=== PATIENT | female | born 1950 | race Caucasian/White ===

== ENCOUNTER 2018-05-31 16:17 | Emergency (ER) | payer OTHER ==
[2018-05-31] MEDS ORDERED: HYDROCODONE/APAP 7.5/325 MG TAB ONE (17:56)
--- NOTE | 2018-05-31 18:53 | RAD REPORT ---
EXAM DESCRIPTION: RAD - Humerus Right - 05/31/2018 6:45 pm CLINICAL HISTORY: Right arm pain status post fall FINDINGS: The bones are osteoporotic. A humeral fracture is not noted
--- NOTE | 2018-05-31 18:54 | RAD REPORT ---
EXAM DESCRIPTION: RAD - Elbow Right 3 View - 05/31/2018 6:45 pm CLINICAL HISTORY: Right elbow pain FINDINGS: An impacted radial neck fracture is seen. No dislocation is noted
--- NOTE | 2018-05-31 18:54 | RAD REPORT ---
EXAM DESCRIPTION: RAD - Forearm Right - 05/31/2018 6:45 pm CLINICAL HISTORY: Right arm pain status post fall FINDINGS: An impaction fracture of the radial neck is present. The bones are osteoporotic. Plate and screws affix an old distal radial fracture.
--- NOTE | 2018-05-31 18:56 | RAD REPORT ---
EXAM DESCRIPTION: RAD - Wrist Left 3 View - 05/31/2018 6:45 pm CLINICAL HISTORY: Left wrist pain status post injury FINDINGS: No fracture or dislocation is seen. The bones are osteoporotic If the patient continues to have symptoms to suggest an occult fracture then a followup plain film se brandon in 7 days would be recommended
--- NOTE | 2018-05-31 19:11 | ER ---
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 Transition of care: patient was not received from another setting of care. Onset of symptoms was May 31, 2018. Risk Assessment: Do you want to hurt yourself or someone else? Patient reports no desire to harm self or others. Initial Sepsis Screen: Does the patient meet any 2 criteria? No. Patient's initial sepsis screen is negative. Does the patient have a suspected source of infection? No. Patient's initial sepsis screen is negative. Care prior to arrival: None. 16:33 Method Of Arrival: Ambulatory 16:33 Acuity: MAURICIO 4 16:41 Mechanism of Injury: Fall. Trauma event details: Injury occurred in the county [facility], Injury occurred: in a public building. Injury occurred: May 31, 2018. Triage Assessment: 16:42 General: Appears in no apparent distress. uncomfortable, Behavior is calm, cooperative, appropriate for age. Trauma Activation: Not Applicable Physician: ED Physician; Name: ; Notified At: ; Arrived At: Physician: General Surgeon; Name: ; Notified At: ; Arrived At: Physician: Radiology; Name: ; Notified At: ; Arrived At: Physician: Respiratory; Name: ; Notified At: ; Arrived At: Physician: Lab; Name: ; Notified At: ; Arrived At: Historical: - Allergies: 16:38 No Known Drug Allergies; hj - Home Meds: 16:38 Lyrica Oral [Active]; hydrocodone-acetaminophen Oral 1 cap every 4-6 hours [Active]; - PMHx: 16:38 Diabetes - NIDDM; neuropathy; - PSHx: 16:38 Cholecystectomy; Appendectomy; hj - Immunization history:: Adult Immunizations up to date. - Social history:: Smoking status: Patient/guardian denies using tobacco, Patient/guardian denies using alcohol. - Ebola Screening: : Patient negative for fever greater than or equal to 101.5 degrees Fahrenheit, and additional compatible Ebola Virus Disease symptoms Patient denies exposure to infectious person Patient denies travel to an Ebola-affected area in the 21 days before illness onset. - Family history:: not pertinent. Screenin:13 Abuse screen: Denies threats or abuse. Nutritional screening: No deficits noted. tl3 Tuberculosis screening: No symptoms or risk factors identified. 17:13 Fall Risk Fall in past 12 months (25 points). tl3 Primary Survey: 16:40 A: Airway: patent, No supplemental oxygen in use on arrival. Oral cavity: clear, gag hj reflex present, Trachea midline. Breathing/Chest: Respiratory pattern: regular, Respiratory effort: spontaneous, unlabored, Breath sounds: clear, Chest inspection: symmetrical rise and fall of the chest. Circulation: Cardiac rhythm: sinus rhythm Heart tones present. Pulses: palpable right radial artery and left radial artery. Skin color: pink, Skin temperature: warm, dry. Disability Alert. Secondary Survey: 16:41 HEENT: No deficits noted. Gastrointestinal: No deficits noted. : No signs and/or hj symptoms were reported regarding the genitourinary system. Musculoskeletal: Reports pain in R elbow, L wrist, R knee, L knee. Assessment: 17:06 General: Appears uncomfortable, slender, well groomed, well developed, well nourished, tl3 Behavior is calm, cooperative, appropriate for age, anxious. Pain:. 17:12 Neuro: Level of Consciousness is awake, alert, obeys commands, Oriented to person, tl3 place, time, situation, Appropriate for age. Cardiovascular: Patient's skin is warm and dry. Respiratory: Airway is patent Respiratory effort is even, unlabored, Respiratory pattern is regular, symmetrical. GI: No signs and/or symptoms were reported involving the gastrointestinal system. : No signs and/or symptoms were reported regarding the genitourinary system. EENT: No signs and/or symptoms were reported regarding the EENT system. Derm: No signs and/or symptoms reported regarding the dermatologic system. Musculoskeletal: Reports pain in right elbow. 17:13 Musculoskeletal: Reports since fell today at [employer] on frayed cord cover that tl3 crosses the floor, has pain to right elbow and shoulder and the underside of her left wrist small abrasion to left side of face where it hit the carpet. 18:13 Reassessment: No changes from previously documented assessment. Patient and/or family tl3 updated on plan of care and expected duration. Pain level reassessed. Patient is alert, oriented x 3, equal unlabored respirations, skin warm/dry/pink. xray at bedside, pt not tolerating procedure well. 19:08 Reassessment: No changes from previously documented assessment. Patient and/or family tl3 updated on plan of care and expected duration. Pain level reassessed. Patient is alert, oriented x 3, equal unlabored respirations, skin warm/dry/pink. Vital Signs: 16:39 BP 144 / 99; Pulse 89; Resp 18; Temp 98.4(TE); Pulse Ox 97% on R/A; Weight 66.68 kg; hj Height 5 ft. 8 in. (172.72 cm); Pain 10/10; 17:13 BP 130 / 78; Pulse 81; Resp 18; Pulse Ox 99% on R/A; tl3 18:13 BP 153 / 79; Pulse 82; Resp 18; Pulse Ox 100% ; tl3 19:08 BP 141 / 88; Pulse 76; Resp 18; Pulse Ox 99% on R/A; tl3 16:39 Body Mass Index 22.35 (66.68 kg, 172.72 cm) [place] Coma Score: 16:39 Eye Response: spontaneous(4). Verbal Response: oriented(5). Motor Response: obeys commands(6). Total: 15. Trauma Score (Adult): 16:39 Eye Response: spontaneous(1); Verbal Response: oriented(1); Motor Response: obeys commands(2); Systolic BP: > 89 mm Hg(4); Respiratory Rate: 10 to 29 per min(4); Jennifer Score: 15; Trauma Score: 12 ED Course: 16:21 Patient arrived in ED. mr 16:21 out of town, doctor is Private Physician. mr 16:35 Triage completed. hj 16:41 Arm band placed on left wrist. hj 16:49 Jose Contreras MD is Attending Physician. [facility] 16:57 Yenifer Sosa, RN is Primary Nurse. tl3 17:13 Patient has correct armband on for positive identification. Bed in low position. Call tl3 light in reach. Side rails up X2. Adult w/ patient. Pulse ox on. NIBP on. 17:13 No provider procedures requiring assistance completed. tl3 18:45 Elbow Right 3 View XRAY In Process Unspecified. EDMS 18:45 Forearm Right XRAY In Process Unspecified. EDMS 18:45 Humerus Right XRAY In Process Unspecified. EDMS 18:45 Wrist Left (3 View) XRAY In Process Unspecified. EDMS 19:00 Patient did not have IV access during this emergency room visit. Orthoglass splint: tl3 posterior long arm splint applied to the right arm. Sling applied to right arm. 19:09 Rubin Lowery MD is Referral Physician. fabby Administered Medications: 17:52 Drug: [place] (7.5 mg-325 mg) 1 tabs Route: PO; tl3 18:14 Follow up: Response: No adverse reaction; Pain is decreased tl3 18:09 Drug: Neosporin Ointment 1 application Route: Topical; Site: affected area; tl3 18:14 Follow up: Response: No adverse reaction tl3 Outcome: 19:00 Discharged to home ambulatory. tl3 19:00 Condition: good 19:00 Discharge instructions given to patient, family, Instructed on discharge instructions, follow up and referral plans. medication usage, Demonstrated understanding of instructions, follow-up care, medications, splint care, Prescriptions given X 1. 19:10 Discharge ordered by . [facility] 20:01 Patient left the ED. ms Signatures: Dispatcher [employer] EDMS Jose Contreras MD MD cha Rivera, Mary mr Sebastian Noemí ms Ngoc Gibbons, ALBERTO DOMINGUEZ Rios Callejas RN RN hj Lowrey, Tammy, RN RN tl3 Corrections: (The following items were deleted from the chart) 16:42 16:39 Pulse 89bpm; Resp 18bpm; Pulse Ox 97% RA; Temp 98.4F Temporal; 66.68 kg; Height 5 hj ft. 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 tl3 tl3
--- NOTE | 2018-05-31 19:11 | EDPHYS ---
Physician Documentation [facility] Name: Collette Brooks Age: 68 yrs Sex: Female : 1950 Arrival Date: 05/31/2018 Time: 16:21 Bed 24 Private MD: out of town, doctor ED Physician Jose Contreras HPI: 05/31 17:46 This 68 yrs old Female presents to ER via Ambulatory with complaints of Fall fabby Injury. 17:46 Details of fall: The patient fell from an upright position, while walking. Onset: The fabby symptoms/episode began/occurred just prior to arrival. Associated injuries: The patient sustained right arm, contusion, decreased range of motion, painful injury. Severity of symptoms: At their worst the symptoms were mild, moderate, in the emergency department the symptoms are unchanged. The patient has not experienced similar symptoms in the past. Historical: - Allergies: 16:38 No Known Drug Allergies; - Home Meds: 16:38 Lyrica Oral [Active]; hydrocodone-acetaminophen Oral 1 cap every 4-6 hours [Active]; hj - PMHx: 16:38 Diabetes - NIDDM; neuropathy; hj - PSHx: 16:38 Cholecystectomy; Appendectomy; hj - Immunization history:: Adult Immunizations up to date. - Social history:: Smoking status: Patient/guardian denies using tobacco, Patient/guardian denies using alcohol. - Ebola Screening: : Patient negative for fever greater than or equal to 101.5 degrees Fahrenheit, and additional compatible Ebola Virus Disease symptoms Patient denies exposure to infectious person Patient denies travel to an Ebola-affected area in the 21 days before illness onset. - Family history:: not pertinent. ROS: 17:46 Constitutional: Negative for fever, chills, and weight loss, Eyes: Negative for injury, fabby pain, redness, and discharge, ENT: Negative for injury, pain, and discharge, Neck: Negative for injury, pain, and swelling, Cardiovascular: Negative for chest pain, palpitations, and edema, Respiratory: Negative for shortness of breath, cough, wheezing, and pleuritic chest pain, Abdomen/GI: Negative for abdominal pain, nausea, vomiting, diarrhea, and constipation, Back: Negative for injury and pain, : Negative for injury, bleeding, discharge, and swelling, Skin: Negative for injury, rash, and discoloration, Neuro: Negative for headache, weakness, numbness, tingling, and seizure, Psych: Negative for depression, anxiety, suicide ideation, homicidal ideation, and hallucinations, Allergy/Immunology: Negative for hives, rash, and allergies, Endocrine: Negative for neck swelling, polydipsia, polyuria, polyphagia, and marked weight changes, Hematologic/Lymphatic: Negative for swollen nodes, abnormal bleeding, and unusual bruising. 17:46 MS/extremity: Positive for injury or acute deformity, contusion, decreased range of motion, pain, tenderness, of the right tricep, right elbow, right wrist and palmar aspect of right forearm, left wrist as well. Exam: 17:46 Constitutional: This is a well developed, well nourished patient who is awake, alert, fabby and in no acute distress. Head/Face: Normocephalic, atraumatic. Eyes: Pupils equal round and reactive to light, extra-ocular motions intact. Lids and lashes normal. Conjunctiva and sclera are non-icteric and not injected. Cornea within normal limits. Periorbital areas with no swelling, redness, or edema. ENT: Nares patent. No nasal discharge, no septal abnormalities noted. Tympanic membranes are normal and external auditory canals are clear. Oropharynx with no redness, swelling, or masses, exudates, or evidence of obstruction, uvula midline. Mucous membranes moist. Neck: Trachea midline, no thyromegaly or masses palpated, and no cervical lymphadenopathy. Supple, full range of motion without nuchal rigidity, or vertebral point tenderness. No Meningismus. Chest/axilla: Normal chest wall appearance and motion. Nontender with no deformity. No lesions are appreciated. Cardiovascular: Regular rate and rhythm with a normal S1 and S2. No gallops, murmurs, or rubs. Normal PMI, no JVD. No pulse deficits. Respiratory: Lungs have equal breath sounds bilaterally, clear to auscultation and percussion. No rales, rhonchi or wheezes noted. No increased work of breathing, no retractions or nasal flaring. Abdomen/GI: Soft, non-tender, with normal bowel sounds. No distension or tympany. No guarding or rebound. No evidence of tenderness throughout. Back: No spinal tenderness. No costovertebral tenderness. Full range of motion. Skin: Warm, dry with normal turgor. Normal color with no rashes, no lesions, and no evidence of cellulitis. Neuro: Awake and alert, GCS 15, oriented to person, place, time, and situation. Cranial nerves II-XII grossly intact. Motor strength 5/5 in all extremities. Sensory grossly intact. Cerebellar exam normal. Normal gait. Psych: Awake, alert, with orientation to person, place and time. Behavior, mood, and affect are within normal limits. 17:46 Musculoskeletal/extremity: Extremities: noted in the right arm: decreased ROM, pain, noted in the left wrist: pain. Vital Signs: 16:39 BP 144 / 99; Pulse 89; Resp 18; Temp 98.4(TE); Pulse Ox 97% on R/A; Weight 66.68 kg; hj Height 5 ft. 8 in. (172.72 cm); Pain 10/10; 17:13 BP 130 / 78; Pulse 81; Resp 18; Pulse Ox 99% on R/A; tl3 18:13 BP 153 / 79; Pulse 82; Resp 18; Pulse Ox 100% ; tl3 19:08 BP 141 / 88; Pulse 76; Resp 18; Pulse Ox 99% on R/A; tl3 16:39 Body Mass Index 22.35 (66.68 kg, 172.72 cm) hj [place] Coma Score: 16:39 Eye Response: spontaneous(4). Verbal Response: oriented(5). Motor Response: obeys hj commands(6). Total: 15. Trauma Score (Adult): 16:39 Eye Response: spontaneous(1); Verbal Response: oriented(1); Motor Response: obeys commands(2); Systolic BP: > 89 mm Hg(4); Respiratory Rate: 10 to 29 per min(4); Jennifer Score: 15; Trauma Score: 12 Procedures: 17:48 Splinting: Splint applied to right arm using Orthoglass splint, applied by nurse. fabby Examined by me, post splint application: neurovascular intact, Patient tolerated well. MDM: 16:49 Patient medically screened. [facility] 17:48 Data reviewed: vital signs, nurses notes, radiologic studies, plain films. [facility] 05/31 17:31 Order name: Elbow Right 3 View XRAY; Complete Time: 19:06 tl3 05/31 17:31 Order name: Forearm Right XRAY; Complete Time: 19:06 tl3 10/03 17:31 Order name: Humerus Right XRAY; Complete Time: 19:06 tl3 05/31 17:46 Order name: Wrist Left (3 View) XRAY; Complete Time: 19:06 [facility] 05/31 17:46 Order name: Ice pack; Complete Time: 20:16 [facility] 05/31 19:09 Order name: Splint - Elbow - Posterior; Complete Time: 20:16 [facility] 05/31 19:09 Order name: Sling; Complete Time: 20:16 [facility] Administered Medications: 17:52 Drug: [place] (7.5 mg-325 mg) 1 tabs Route: PO; tl3 18:14 Follow up: Response: No adverse reaction; Pain is decreased tl3 18:09 Drug: Neosporin Ointment 1 application Route: Topical; Site: affected area; tl3 18:14 Follow up: Response: No adverse reaction tl3 Disposition: 05/31/18 19:10 Discharged to Home. Impression: Fall due to bumping against object, Pain in right elbow, Sprain of carpal joint of right wrist, Displaced fracture of neck of right radius - impacted. - Condition is Stable. - Discharge Instructions: Joint Pain, Head Injury, Adult, Fall Prevention in the Home, Musculoskeletal Pain, Head Injury, Adult, [id number]. - Prescriptions for Tylenol- Codeine #3 300-30 mg Oral Tablet - take 2 tablet by ORAL route every 6 hours As needed; 30 tablet. - Medication Reconciliation Form, Thank You Letter, Antibiotic Education, Prescription Opioid Use form. - Follow up: Private Physician; When: 2 - 3 days; Reason: Recheck today's complaints, Continuance of care, Re-evaluation by your physician. Follow up: Dr. Rubin Lowery; When: 2 - 3 days; Reason: Recheck today's complaints, Continuance of care, Re-evaluation by your physician. - Problem is new. - Symptoms have improved. Signatures: Dispatcher [employer] EDJose Marie MD MD cha Solis, Maria ms Joaquin, Henry, RN RN Yenifer Leon RN RN tl3 Corrections: (The following items were deleted from the chart) 20:01 19:10 05/31/2018 19:10 Discharged to Home. Impression: Fall due to bumping against ms object; Pain in right elbow; Sprain of carpal joint of right wrist; Displaced fracture of neck of right radius - impacted. Condition is Stable. Discharge Instructions: Joint Pain, Head Injury, Adult, Fall Prevention in the Home, Musculoskeletal Pain, Head Injury, Adult, [id number]. Prescriptions for Tylenol-Codeine #3 300-30 mg Oral Tablet - take 2 tablet by ORAL route every 6 hours As needed; 30 tablet. and Forms are Medication Reconciliation Form, Thank You Letter, Antibiotic Education, Prescription Opioid Use. Follow up: Private Physician; When: 2 - 3 days; Reason: Recheck today's complaints, Continuance of care, Re-evaluation by your physician. Follow up: Dr. Rubin Lowery; When: 2 - 3 days; Reason: Recheck today's complaints, Continuance of care, Re-evaluation by your physician. Problem is new. Symptoms have improved. fabby
[2018-05-31] MEDS ORDERED: HYDROCODONE/APAP 5/325 MG TAB ONE (19:43)
[2018-05-31 20:07] VITALS: TEMP 98.4
[2018-05-31 20:11] VITALS: BP 141/88; O2SAT 99
== END 2018-05-31 20:01 | disposition home or self-care (01) ==
LOC: ER 16:17
PROC: 2W3CX1Z Immobilization of Right Lower Arm using Splint (ICD-10-PCS; principal; 2018-05-31)
DX: S52.131A Displaced fracture of neck of right radius, initial encounter for closed fracture (principal); S63.511A Sprain of carpal joint of right wrist, initial encounter; W18.39XA Other fall on same level, initial encounter; Y93.01 Activity, walking, marching and hiking; Y92.9 Unspecified place or not applicable; E11.9 Type 2 diabetes mellitus without complications
CPT/HCPCS: 99284

== ENCOUNTER 2019-09-07 14:33 | Emergency (ER) | payer OTHER ==
--- OUTSIDE RECORDS SUMMARY | 2019-09-07 14:34 | XMS REPORT ---
:1950 [facility] [address] [place] [address] Care Team Providers Name Role Phone Unavailable Unavailable Unavailable Payers Payer Name Policy Type Policy Number Effective Date Expiration Date Problems This patient has no known problems. Allergies, Adverse Reactions, Alerts Allergy Allergy Status Severity Reaction(s) Onset Inactive Treating Comments Name Type Date Date Clinician No Known DA Active U 2017-11 Allergies -25 00:00:0 0 Medications This patient has no known medications. Results Test Description Test Time Test Comments Text Results Atomic Results Result Comments - CT LOWER EXTRM W/O C LT 2019-05-03 11:36:00 Patient Name: ESE QUINTANA Unit No: [id number] EXAMS: CPT CODE: [id number] CT LOWER EXTRM W/[place] [address] CT OF THE LEFT ANKLE WITH SAGITTAL AND CORONAL RECONSTRUCTIONS DIAGNOSIS: Subchondral cyst formation is seen in the medial talar dome without joint space narrowing most consistent with osteochondritis. MRI would be helpful in further evaluation if clinically indicated. COMMENT: COMPARISON: No prior exams available. Scans were performed with thin sections and reconstructions were obtained. CT radiation dose optimization is achieved for this examination by the use of a CT protocol in accordance with ACR practice standards and adherence to centrifugal spinner's recommendations. Subchondral cysts are present as noted. No loose bodies are seen. A plantar calcaneal spur is noted. at 1136 Reported and signed by: Mike Monroy MD CC: Margarito Schmitt MD Technologist: Earl Pisano,RT(R) CTDI: DLP: Trnscrpt: 05/03/2019 (5344) [email or web address] [facility] NAME: ESE QUINTANA [address] [place] [address] PHYS: Margarito Chua : 1950 AGE: 68 SEX: F [place] [address] LOC: Y.RAD PHONE #: [phone] EXAM DATE: 05/01/2019 STATUS: DEP CLI FAX #: [phone] RAD #: D/C DT PAGE 1 Signed Report Patient Name: ESE QUINTANA Unit No: [id number] EXAMS: CPT CODE: [id number] CT LOWER EXTRM W/[place] [address] <Continued> Orig Print D/T: S: 05/03/2019 (4217) [facility] NAME: ESE QUINTANA [address] [place] [address] PHYS: Margarito Chua : 1950 AGE: 68 SEX: F [place] [address] LOC: Y.RAD PHONE #: [phone] EXAM DATE: 05/01/2019 STATUS: DEP CLI FAX #: [phone] RAD #: D/C DT PAGE 2 Signed Report - CT LOWER EXTRM W/O C LT 2019-05-01 12:37:00 Patient Name: ESE QUINTANA Unit No: [id number] EXAMS: CPT CODE: [id number] CT LOWER EXTRM W/[place] [address] [place] scan left foot with Reconstruction DIAGNOSIS: 1. Subcortical cysts are present within the medial aspect of the talar dome with associated sclerosis. Mild joint space narrowing. No evidence of subchondral collapse. Visualized bony structures are diffusely osteopenic. COMMENT: 0.63 mm axial slices obtained of the left foot and ankle with reconstruction. Findings are as described above. at 1237 Reported and signed by: Pippa Rowland MD CC: Margarito Schmitt MD Technologist: Kathryn Hedrick, RT(R) CTDI: DLP: Trnscrpt: 05/01/2019 (5640) [email or web address] [facility] NAME: ESE QUINTANA [address] PHYS: Margarito Chua : 1950 AGE: 68 SEX: F [place], [place] [address] LOC: Y.RAD PHONE #: [phone] EXAM DATE: 05/01/2019 STATUS: REG CLI FAX #: [phone] RAD #: D/C DT PAGE 1 Signed Report Patient Name: ESE QUINTANA Unit No: [id number] EXAMS: CPT CODE: [id number] CT LOWER EXTRM W/[place] [address] <Continued> Orig Print D/T: S: 05/01/2019 (1243) [facility] NAME: ESE QUINTANA [address] [place] [address] PHYS: Margarito Chua : 1950 AGE: 68 SEX: F [place] [address] LOC: Y.RAD PHONE #: [phone] EXAM DATE: 05/01/2019 STATUS: REG CLI FAX #: [phone] RAD #: D/C DT PAGE 2 Signed Report - XR BONE SURVEY COMP 2018-10-31 17:53:00 Name: ESE QUINTANA [facility]ly [facility] : 1950 Age/S: 68 / F [id number] [address] Unit #: [id number] Loc: [place] [address] Phys: Ron Dong MD,PhD Acct: [id number] Dis Date: Status: REG CLI PHONE #: [phone] Exam Date: 10/31/2018 1545 FAX #: Reason: R EXAMS: CPT: [id number] XR BONE SURVEY COMP 20130 Fluoro Time: DAP (Gy m2): Air Kerma (mGy): LOCATION: V20 EXAM: - XR BONE SURVEY COMP HISTORY: R TECHNIQUE: A frontal view of the chest, multiple images of the axial and appendicular skeleton COMPARISON: None. FINDINGS: No focal aggressive osseous lesions are identified. Mild diffuse osteopenia is present. The lungs are adequately inflated and clear. There is no pneumothorax or pleural effusion. The thoracic and lumbar vertebra are well aligned, and the vertebral body heights are maintained. Multilevel anterior flowing osteophytes are noted along the length of the thoracolumbar spine. Degenerative disc space narrowing and facet sclerosis are present at L4 S1. There are postsurgical changes of anterior fusion at C4-5. Mild superior endplate irregularity and vertebral body height loss are present at C6. Unremarkable postsurgical changes of the left knee arthroplasty. There are no focal soft tissue abnormality. IMPRESSION: No focal aggressive osseous lesions. Mild diffuse osteopenia. at 5946 Reported and signed by: Kadie Arriaga M.D. CC: Ron CRESPO,PhD Iekr PAGE 1 Signed Report Name: ESE QUINTANA [facility] : 1950 Age/S: 68 / F [id number] [address] Unit #: [id number] Loc: [place] [address] Phys: Ron Dong MD,PhD Acct: [id number] Dis Date: Status: REG CLI PHONE #: [phone] Exam Date: 10/31/2018 1545 FAX #: Reason: [id number] EXAMS: CPT: [id number] XR BONE SURVEY COMP 01446 Fluoro Time: DAP (Gy m2): Air Kerma (mGy): <Continued> Technologist: Emani Carey RT(R)(CT) Trnscb Date/Time: 10/31/2018 (1752) [email or web address] Orig Print D/T: S: 10/31/2018 (0156) PAGE 2 Signed Report
[2019-09-07] MEDS ORDERED: NA CHLORIDE 0.9% 1,000 ML ONE (15:32)
[2019-09-07] MEDS ORDERED: KETOROLAC 30 MG/ML INJ ONE (15:32)
[2019-09-07] MEDS ORDERED: DIPHENHYDRAMINE 50 MG/ML VIAL ONE (15:32)
[2019-09-07] MEDS ORDERED: METOCLOPRAMIDE 10 MG/2mL INJ ONE (15:33)
--- NOTE | 2019-09-07 15:37 | RAD REPORT ---
EXAM DESCRIPTION: CT - Head Brain Wo Cont - 09/07/2019 3:28 pm CLINICAL HISTORY: Headache COMPARISON: 2017 TECHNIQUE: Computed axial tomography of the head was obtained. IV contrast was not requested. All CT scans are performed using dose optimization technique as appropriate and may include automated exposure control or mA/KV adjustment according to patient size. FINDINGS: An intracranial bleed is not seen . The ventricles are normal in caliber. No extra-axial fluid collection is noted. Fluid within the sinuses/ mastoids is not seen. IMPRESSION: No acute intracranial abnormality is seen. If patient's symptoms persist MRI of the bra in would be recommended.
[2019-09-07] MEDS ORDERED: FENTANYL CITR 100 MCG/2 ML ONE (16:42)
--- NOTE | 2019-09-07 17:20 | ER ---
Nurse's Notes [facility] Name: Collette Gomez Age: 69 yrs Sex: Female : 1950 Arrival Date: 09/07/2019 Time: 14:34 Bed 23 Private MD: Diagnosis: Headache;Otalgia, left ear Presentation: 09/07 15:00 Presenting complaint: Patient states: migraine and nausea/vomiting that began 1 week aa5 ago. Transition of care: patient was not received from another setting of care. Onset of symptoms was August 2019. Risk Assessment: Do you want to hurt yourself or someone else? Patient reports no desire to harm self or others. Initial Sepsis Screen: Does the patient meet any 2 criteria? No. Patient's initial sepsis screen is negative. Does the patient have a suspected source of infection? No. Patient's initial sepsis screen is negative. Care prior to arrival: None. 15:00 Acuity: MAURICIO 3 aa5 15:00 Method Of Arrival: Wheelchair aa5 Triage Assessment: 16:19 Headache History: The patient has had previous headaches and this one is more severe mg2 than previous episodes. General: Appears uncomfortable, Behavior is cooperative, crying. Pain: Pain currently is 8 out of 10 on a pain scale. Pain began gradually, 2-3 days ago. Also complains of no other associated symptoms. Historical: - Allergies: 15:01 No Known Allergies; aa5 - PMHx: 15:01 Diabetes - NIDDM; neuropathy; aa5 - PSHx: 15:01 Cholecystectomy; Appendectomy; aa5 - Immunization history:: Adult Immunizations unknown. - Social history:: Smoking status: Patient/guardian denies using tobacco. - Ebola Screening: : No symptoms or risks identified at this time. Screenin:57 Abuse screen: Denies threats or abuse. Denies injuries from another. Nutritional mg2 screening: No deficits noted. Tuberculosis screening: No symptoms or risk factors identified. Fall Risk IV access (20 points). Assessment: 16:15 General: Appears uncomfortable, Behavior is cooperative, crying. Pain: Complains of mg2 pain in left temporal area. Neuro: Level of Consciousness is awake, alert, obeys commands, Oriented to person, place, time, situation, Reports headache in left in entire parietal area, frontal area. Cardiovascular: Capillary refill < 3 seconds Patient's skin is warm and dry. Respiratory: Airway is patent Respiratory effort is even, unlabored, Respiratory pattern is regular, symmetrical. GI: No signs and/or symptoms were reported involving the gastrointestinal system. GI: Reports nausea, vomiting. : No signs and/or symptoms were reported regarding the genitourinary system. EENT: No signs and/or symptoms were reported regarding the EENT system. Derm: Skin is intact, is healthy with good turgor, Skin is pink, warm \T\ dry. normal. Musculoskeletal: Circulation, motion, and sensation intact. Capillary refill < 3 seconds. 17:39 Reassessment: Patient appears in no apparent distress at this time. Patient states mg2 feeling better. Vital Signs: 15:01 BP 177 / 91; Pulse 85; Resp 20 S; Temp 97.8(TE); Pulse Ox 99% on R/A; Weight 74.84 kg aa5 (R); Height 5 ft. 8 in. (172.72 cm) (R); Pain 10/10; 16:17 BP 170 / 98; Pulse 75; Resp 18; Pulse Ox 100% on R/A; mg2 17:40 BP 145 / 78; Pulse 74; Resp 18; Temp 98; Pulse Ox 100% on R/A; mg2 15:01 Body Mass Index 25.09 (74.84 kg, 172.72 cm) aa5 ED Course: 14:34 Patient arrived in ED. as 15:00 Arm band placed on. aa5 15:01 Triage completed. aa5 15:04 Earl Bui NP is PHCP. pm1 15:04 Jose Contreras MD is Attending Physician. pm1 15:23 Negro Santiago, ALBERTO is Primary Nurse. mg2 15:28 CT Head Brain wo Cont In Process Unspecified. EDMS 15:55 No provider procedures requiring assistance completed. Inserted saline lock: 22 gauge mg2 in right antecubital area, using aseptic technique. 16:16 Patient has correct armband on for positive identification. Pulse ox on. NIBP on. Door mg2 closed. Warm blanket given. 17:40 IV discontinued, intact, bleeding controlled, No redness/swelling at site. Pressure mg2 dressing applied. Administered Medications: 15:54 Drug: TORadol - Ketorolac 15 mg Route: IVP; Site: right antecubital; mg2 17:36 Follow up: Response: No adverse reaction; Marked relief of symptoms mg2 15:54 Drug: NS 0.9% 1000 ml Route: IV; Rate: 1000 ml; Site: right antecubital; mg2 17:36 Follow up: Response: No adverse reaction; IV Status: Completed infusion; IV Intake: mg2 1000ml 15:54 Drug: Reglan 10 mg Route: IVP; Site: right antecubital; mg2 17:35 Follow up: Response: No adverse reaction; Marked relief of symptoms mg2 15:54 Drug: Benadryl 12.5 mg Route: IVP; Site: right antecubital; mg2 17:35 Follow up: Response: No adverse reaction; Marked relief of symptoms mg2 16:43 Drug: fentaNYL (PF) 25 mcg Route: IVP; Site: right antecubital; mg2 17:35 Follow up: Response: No adverse reaction; Marked relief of symptoms mg2 Intake: 17:36 IV: 1000ml; Total: 1000ml. mg2 Outcome: 17:19 Discharge ordered by MD. pm1 17:41 Discharged to home ambulatory, with family. mg2 17:41 Condition: stable 17:41 Discharge instructions given to patient, family, Instructed on discharge instructions, follow up and referral plans. medication usage, Demonstrated understanding of instructions, follow-up care, medications, Prescriptions given X 2. 17:41 Patient left the ED. mg2 Signatures: Dispatcher [employer] Michelle Ovalle Audri, RN RN aa5 Earl Bui, RADHA TRACK SWEEPER pm1 Negro Santiago RN RN mg2
--- NOTE | 2019-09-07 17:20 | EDPHYS ---
Physician Documentation [facility] Name: Collette Gomez Age: 69 yrs Sex: Female : 1950 Arrival Date: 09/07/2019 Time: 14:34 Bed 23 Private MD: MARY Physician Jose Contreras HPI: 09/07 15:10 This 69 yrs old Female presents to ER via Wheelchair with complaints of pm1 Headache, Vomiting. 15:10 The patient complains of pain to the left side of head. The patient describes the pm1 headache as aching. Onset: The symptoms/episode began/occurred 1 week(s) ago. Associated signs and symptoms: Pertinent positives: nausea, Vertigo vomiting. 15:10 Severity of symptoms: in the emergency department the pain is unchanged. Headache pm1 History: The patient has had previous headaches and this one is similar to previous episodes. The symptoms are alleviated by Darkened room, the symptoms are aggravated by lights, movement. The patient has experienced similar episodes in the past, multiple times, but today's symptoms are worse, lasting longer. It is unknown whether or not the patient has recently seen a physician. Historical: - Allergies: 15:01 No Known Allergies; aa5 - PMHx: 15:01 Diabetes - NIDDM; neuropathy; aa5 - PSHx: 15:01 Cholecystectomy; Appendectomy; aa5 - Immunization history:: Adult Immunizations unknown. - Social history:: Smoking status: Patient/guardian denies using tobacco. - Ebola Screening: : No symptoms or risks identified at this time. ROS: 15:10 Constitutional: Negative for fever, chills, and weight loss, Eyes: Negative for injury, pm1 pain, redness, and discharge. 15:10 Neck: Negative for injury, pain, and swelling, Cardiovascular: Negative for chest pain, palpitations, and edema, Respiratory: Negative for shortness of breath, cough, wheezing, and pleuritic chest pain, Back: Negative for injury and pain. 15:10 : Negative for injury, bleeding, discharge, and swelling, MS/Extremity: Negative for injury and deformity, Skin: Negative for injury, rash, and discoloration. 15:10 ENT: Positive for ear pain, Negative for drainage from ear(s). 15:10 Abdomen/GI: Positive for nausea and vomiting, Negative for abdominal pain, diarrhea, constipation. 15:10 Neuro: Positive for dizziness, headache, Negative for numbness, tingling, weakness. Exam: 15:10 Constitutional: This is a well developed, well nourished patient who is awake, alert, pm1 and in no acute distress. 15:10 Eyes: Pupils equal round and reactive to light, extra-ocular motions intact. Lids and lashes normal. Conjunctiva and sclera are non-icteric and not injected. Cornea within normal limits. Periorbital areas with no swelling, redness, or edema. 15:10 Neck: Trachea midline, no thyromegaly or masses palpated, and no cervical lymphadenopathy. Supple, full range of motion without nuchal rigidity, or vertebral point tenderness. No Meningismus. Chest/axilla: Normal chest wall appearance and motion. Nontender with no deformity. No lesions are appreciated. Cardiovascular: Regular rate and rhythm with a normal S1 and S2. No gallops, murmurs, or rubs. Normal PMI, no JVD. No pulse deficits. Respiratory: Lungs have equal breath sounds bilaterally, clear to auscultation and percussion. No rales, rhonchi or wheezes noted. No increased work of breathing, no retractions or nasal flaring. Abdomen/GI: Soft, non-tender, with normal bowel sounds. No distension or tympany. No guarding or rebound. No evidence of tenderness throughout. Back: No spinal tenderness. No costovertebral tenderness. Full range of motion. Skin: Warm, dry with normal turgor. Normal color with no rashes, no lesions, and no evidence of cellulitis. MS/ Extremity: Pulses equal, no cyanosis. Neurovascular intact. Full, normal range of motion. 15:10 Head/face: Noted is no obvious of injury or deformity except tenderness, that is moderate, of the left frontal area, left side of forehead, left occipital area and left base of the skull, Sinus tenderness, is not appreciated. 15:10 ENT: External ear(s): are unremarkable, Ear canal(s): are normal, TM's: are normal, no evidence of bulging, no dullness, no erythema, no fluid levels. 15:10 Neuro: Orientation: is normal, Mentation: is normal, Motor: is normal, moves all fours. Vital Signs: 15:01 BP 177 / 91; Pulse 85; Resp 20 S; Temp 97.8(TE); Pulse Ox 99% on R/A; Weight 74.84 kg aa5 (R); Height 5 ft. 8 in. (172.72 cm) (R); Pain 10/10; 16:17 BP 170 / 98; Pulse 75; Resp 18; Pulse Ox 100% on R/A; mg2 17:40 BP 145 / 78; Pulse 74; Resp 18; Temp 98; Pulse Ox 100% on R/A; mg2 15:01 Body Mass Index 25.09 (74.84 kg, 172.72 cm) aa5 MDM: 15:10 Patient medically screened. pm1 15:17 Data reviewed: vital signs. Data interpreted: Pulse oximetry: on room air is 99 %. pm1 Interpretation: normal. 15:17 Refusal of service: The patient/guardian displays adequate decision making capability pm1 and despite a detailed discussion of alternatives, benefits, risks, and consequences refuses: all lab tests, Patient reports decreased appetite and PO intake. When discussing the plan of care I wanted to get blood work and explained my reasoning. Patient refused because her PCP draws blood work all the time. 16:27 Medication response: report decreased pain to 5 - 6 / 10. Will order additional pm1 medication. 16:27 Counseling: I had a detailed discussion with the patient and/or guardian regarding: the pm1 historical points, exam findings, and any diagnostic results supporting the discharge/admit diagnosis, radiology results, the need for outpatient follow up. 17:18 ED course: Patient reports that she feels better. Pain 1-2/10 and wants to go home. pm1 09/07 15:17 Order name: CT Head Brain wo Cont; Complete Time: 15:45 pm1 09/07 15:17 Order name: IV Saline Lock; Complete Time: 15:54 pm1 09/07 16:28 Order name: PO challenge; Complete Time: 17:35 pm1 Administered Medications: 15:54 Drug: TORadol - Ketorolac 15 mg Route: IVP; Site: right antecubital; mg2 17:36 Follow up: Response: No adverse reaction; Marked relief of symptoms mg2 15:54 Drug: NS 0.9% 1000 ml Route: IV; Rate: 1000 ml; Site: right antecubital; mg2 17:36 Follow up: Response: No adverse reaction; IV Status: Completed infusion; IV Intake: mg2 1000ml 15:54 Drug: Reglan 10 mg Route: IVP; Site: right antecubital; mg2 17:35 Follow up: Response: No adverse reaction; Marked relief of symptoms mg2 15:54 Drug: Benadryl 12.5 mg Route: IVP; Site: right antecubital; mg2 17:35 Follow up: Response: No adverse reaction; Marked relief of symptoms mg2 16:43 Drug: fentaNYL (PF) 25 mcg Route: IVP; Site: right antecubital; mg2 17:35 Follow up: Response: No adverse reaction; Marked relief of symptoms mg2 Disposition: 09/07/19 17:19 Discharged to Home. Impression: Headache, Otalgia, left ear. - Condition is Stable. - Discharge Instructions: General Headache Without Cause, Nausea and Vomiting, Adult, Earache, Adult. - Prescriptions for Fiorinal 50- 325-40 mg Oral Capsule - take 1 capsule by ORAL route every 4 hours As needed - not to exceed 6 capsules per day; 20 capsule. Zofran 4 mg Oral Tablet - take 1 tablet by ORAL route every 8 hours As needed; 20 tablet. - Medication Reconciliation Form, Thank You Letter, Antibiotic Education, Prescription Opioid Use form. - Follow up: Emergency Department; When: As needed; Reason: Worsening of condition. Follow up: Private Physician; When: 2 - 3 days; Reason: Recheck today's complaints, Continuance of care, Re-evaluation by your physician. - Problem is new. - Symptoms have improved. Addendum: 09/10/2019 08:21 Co-signature as Attending Physician, Jose Contreras MD I agree with the assessment and c broussard plan of care. Signatures: Dispatcher [employer] [facility] Jose Contreras MD MD cha Calderon, Audri, RN RN aa5 Earl Bui, RADHA MODEL BUILDER pm1 Negro Santiago RN RN mg2 Corrections: (The following items were deleted from the chart) 09/07 17:26 17:19 09/07/2019 17:19 Discharged to Home. Impression: Headache. Condition is Stable. pm1 Forms are Medication Reconciliation Form, Thank You Letter, Antibiotic Education, Prescription Opioid Use. Follow up: Emergency Department; When: As needed; Reason: Worsening of condition. Follow up: Private Physician; When: 2 - 3 days; Reason: Recheck today's complaints, Continuance of care, Re-evaluation by your physician. Problem is new. Symptoms have improved. pm1 17:41 17:26 09/07/2019 17:19 Discharged to Home. Impression: Headache; Otalgia, left ear. mg2 Condition is Stable. Discharge Instructions: General Headache Without Cause, Nausea and Vomiting, Adult, Earache, Adult. Prescriptions for Fiorinal 50-325-40 mg Oral Capsule - take 1 capsule by ORAL route every 4 hours As needed - not to exceed 6 capsules per day; 20 capsule, Zofran 4 mg Oral Tablet - take 1 tablet by ORAL route every 8 hours As needed; 20 tablet. and Forms are Medication Reconciliation Form, Thank You Letter, Antibiotic Education, Prescription Opioid Use. Follow up: Emergency Department; When: As needed; Reason: Worsening of condition. Follow up: Private Physician; When: 2 - 3 days; Reason: Recheck today's complaints, Continuance of care, Re-evaluation by your physician. Problem is new. Symptoms have improved. pm1
[2019-09-07 18:05] VITALS: O2SAT 100
[2019-09-07 18:07] VITALS: BP 145/78; TEMP 98
== END 2019-09-07 17:41 | disposition home or self-care (01) ==
LOC: ER 14:33
DX: R51 Headache (principal); H92.02 Otalgia, left ear
CPT/HCPCS: 96361; 70450; 96375; 96374; 99284; J2765; J1200; J3010; J7030

== ENCOUNTER 2019-12-06 14:20 | Emergency (ER) | payer OTHER ==
[2019-12-06 14:58] LABS: Absolute Lymphocytes (CBC) 1.4 K/uL (0.7-4.9); Basophils % 0.3 % (0-1.3); Hematocrit 38.4 % (36.0-45.0); Lymphocytes % 26.3 % (15.3-44.8); MPV 8.6 fL (7.6-11.3)
[2019-12-06 15:09] LABS: Protime INR 0.84
[2019-12-06 15:14] LABS: ALT/SGPT 19 U/L (12-78); AST/SGOT 21 U/L (15-37); Albumin 3.6 g/dL (3.4-5.0); Alkaline Phosphatase 112 U/L (45-117); BUN Blood Urea Nitrogen 21 mg/dL (7-18); Bicarbonate 27 mmol/L (21-32); Bilirubin Direct 0.1 mg/dL (0-0.2); Bilirubin Total 0.2 mg/dL (0.2-1.0); Glucose Level 93 mg/dL (74-106); Magnesium 2.4 mg/dL (1.8-2.4); NT PRO-BNP 496 pg/mL (<125); Potassium 4.1 mmol/L (3.5-5.1); Protein, Total 7.3 g/dL (6.4-8.2); Sodium Level 141 mmol/L (136-145); Troponin (Emerg Dept Use Only) < 0.02 ng/mL (0.0-0.045)
--- OUTSIDE RECORDS SUMMARY | 2019-12-06 15:23 | XMS REPORT ---
:1950 Author Organization [facility] t Address [address] [place] [address] Care Team Providers Name Role Phone Unavailable Unavailable Unavailable Payers Payer Name Policy Type Policy Number Effective Date Expiration D ate Problems This patient has no known problems. Allergies, Adverse Reactions, Alerts Allergy Allergy Status Severity Reaction(s) Onset Inactive Treating C omments Name Type Date Date Clinician No Known DA Active U 2017-11 Allergies -25 00:00:0 0 Medications This patient has no known medications. Results Test Description Test Time Test Comments Text Results Atomic Results Result Comments - CT LOWER EXTRM W/O C LT 2019-05-03 11:36:00 Patient Name: ESE QUINTANA Unit No: [id number] EXAMS: CPT CODE: [id number] CT LOWER EXTRM W/[place] [address] [place] OF THE LEFT ANKLE W ITH SAGITTAL AND CORONAL RECONSTRUCTIONS DIAGNOSIS: Subchondral cyst formation i s seen in the medial talar dome wit hout joint space narrowing mos t consistent with osteochondri tis. MRI would be helpful i n further evaluation if clinic ally indicated. COM MENT: COMPARISON: No p rior exams available. Scans were performed with th in sections and reconstructions were obtained. CT radiation d ose optimization is achieved for this examination by the use o f a CT protocol in accordance with ACR practice standards and adh erence to food cart attendant's recommenda tions. Subchondral c ysts are present as noted. No lo ose bodies are seen. A pl wendie calcaneal spur is noted. Electronically Si gned by Mike Monroy MD on 05/03/2019 at 1136 Reported and signed by: Mike Monroy MD CC: Margarito schaefer MD Technologist: Earl Pisano,RT(R) CTDI: DLP: Trnscrpt: 05/03 (8810) Fat[facility] NAME: ESE QUINTANA [address] [place] [address] PHYS: Margarito Chua : 1950 AGE: 68 SEX: F [place] [address] 0 20 LOC: RADHA PHONE #: [phone] EXAM DATE: 10/2018 STATUS: DEP CLI FAX #: [phone] R AD #: D/C DT PAGE 1 Signed Report Patient Name: ESE QUINTANA Unit No: [id number] EXAMS : CPT CODE: [id number] [place] LOWER EXTRM W/[place] [address] <Continued> Orig Print D/T: S: 05/03/2019 (7309) [facility] NAME: ESE QUINTANA [address] [place] [address] PHYS: Margarito Chua : 1950 AGE: 68 SEX: F [place] [address] 20 LOC: HarveyRAD PHONE #: EXAM DATE: 10/2018 STATUS: DEP CLI FAX #: [phone] R AD #: D/C DT PAGE 2 Signed Report - CT LOWER EXTRM W/O C LT 2019-05-01 12:37:00 Patient Name: ESE QUINTANA Unit No: [id number] EXAMS: CPT CODE: [id number] CT LOWER EXTRM W/[place] [address] [place] scan left foot with Reconstruction DIAGNOSIS: 1. Subcortical cysts are presen t within the medial aspect of the talar dome with associated sclerosis. Mild joint space narrowing. No evidenc e of subchondral collapse. Visua lized bony structures are di ffusely osteopenic. CO MMENT: 0.63 mm axial s lices obtained of the left foot an d ankle with reconstruction. Findings are as describ ed above. at 12 37 Reported and signed by: Pippa Rowland MD CC : Margarito Schmitt MD Technologist: More Love(R) CTDI: DLP: Trnscrpt: 05/01/2019 (1237) t.SDR.GVG [facility] NAME: ESE QUINTANA [address] [facility] PHYS: Devyn Chua : 1950 AGE: 68 SEX: F [place], [place] [id number] LOC: Y.RAD PHONE #: [phone] E XAM DATE: 05/01/2019 STATUS: REG CLI FAX #: [phone] RAD #: D/C DT PAGE 1 Signed Report Patient Name: ESE QUINTANA Unit No: [id number] EXAMS : CPT CODE: [id number] [place] LOWER EXTRM W/[place] [address] <Continued> Orig Print D /T: S: 05/01/2019 (1241) [facility] NAME: ESE QUINTANA [address] [place] [address] PHYS: Margarito Chua : 1950 AGE: 68 SEX: F [place], [place] [address] 20 LOC: Y.RAD PHONE #: [phone] EXAM DATE: 10/2018 STATUS: REG CLI FAX #: [phone] R AD #: D/C DT PAGE 2 Signed Report - XR BONE SURVEY COMP 2018-10-31 17:53:00 Name: ESE BELLO [facility] : 1950 Age/S: 68 / F [id number] [address] Unit #: [id number] L oc: [place] [address] Phys: Ron Dong,PhD Acct: [id number] Dis Date: Status: REG CLI PHONE #: [phone] Ex am Date: 10/31/2018 1545 FAX #: Reason: [id number] EXAMS : CPT: [id number] XR BONE SURVEY COMP 39065 Fluoro Time: DAP (Gy m2): Air Kerma (mGy): LO CATION: V20 EXAM: - X R BONE SURVEY COMP HI STORY: R TECHNIQ UE: A frontal view of the chest, m ultiple images of the axial an d appendicular skeleton COMPARISON: None. FINDINGS: No focal aggressiv e osseous lesions are identifi ed. Mild diffuse osteopeni a is present. The l ungs are adequately inflated and clear. There is no pneumothorax or pleural effusion. The thoracic and lumbar vertebra are well aligned, and the verteb ral body heights are maintaine d. Multilevel anterior flowing osteophytes are noted along the length of the thoracolum bar spine. Degenerative d isc space narrowing and facet sc lerosis are present at L4 S1. There are postsurgical billings es of anterior fusion at C4-5. Mild superior endplate irregulari ty and vertebral body height loss a re present at C6. Unremarkable postsurgical ch anges of the left knee arthroplast y. There are no focal soft tissue abnormality. IMPRESSION: No focal aggressive osseous lesions. Mild diffuse osteopenia. at 1751 * * Reported and signed by: Kadie Arriaga M.D. CC: Ron CRESPO,PhD Iker PAGE 1 Sign ed Report Name: ESE QUINTANA [facility] : 1950 Age/S : 68 / F [id number] [address] Unit #: [id number] Loc: [place], [place] [address] Phys: Ron Dong MD,PhD Acct: [id number] Dis Date: Status: REG CLI PHONE #: [phone] Ex am Date: 10/31/2018 1545 FAX #: Reason: R EXAMS : CPT: [id number] XR BONE SURVEY COMP 51400 Fluoro Time: DAP (Gy m2): Air Kerma (mGy): <Contin ued> Technologist: Emani Carey RT(R)(CT) Trnscb Date/Time: 019 (175) [email or web address] Orig Print D/T: S: 10/31 (9068) PAGE 2 Signed Report
[2019-12-06 15:52] LABS: Urine Blood NEGATIVE (NEG); Urine Glucose NEGATIVE (NEG); Urine Protein NEGATIVE (NEG); Urine pH 5.5 (5.0-7.0)
[2019-12-06 15:53] LABS: Urine Bacteria NONE SEEN /HPF (<20); Urine Culture Reflex Order NOT NEEDED; Urine Mucus 1+ /HPF (NONE SEEN); Urine RBC NONE SEEN /HPF (NONE SEEN)
--- NOTE | 2019-12-06 17:05 | ER ---
Nurse's Notes [facility] Name: Collette Gomez Age: 69 yrs Sex: Female : 1950 Arrival Date: 12/06/2019 Time: 14:27 Bed 18 Private MD: Diagnosis: Weakness Presentation: 12/05 14:16 Chief complaint: EMS states: Family reported to EMS that the pt. blood sugar was low rb1 and she seemed to disoriented, but they were not able to check it because they do not have a Glucometer. Pt. is 69 yr. old, c/o fatigue. History of Type 2 diabetes, anxiety, and HTN. BS 115, GCS 15, ROM in all extremities. Speech is clear. Pt. has not taken any medications today. Coronavirus screen: Proceed with normal triage. Ebola Screen: Patient denies exposure to infectious person. Initial Sepsis Screen: Does the patient meet any 2 criteria? No. Patient's initial sepsis screen is negative. Does the patient have a suspected source of infection? No. Patient's initial sepsis screen is negative. Risk Assessment: Do you want to hurt yourself or someone else? Patient reports no desire to harm self or others. Onset of symptoms was December 06, 2019. 14:16 Method Of Arrival: EMS: [facility] 14:16 Acuity: MAURICIO 3 rb1 Triage Assessment: 14:16 General: Appears in no apparent distress. comfortable, Behavior is calm, cooperative, rb1 Reports fatigue for. Pain: Denies pain. Neuro: Level of Consciousness is awake, alert, obeys commands, Oriented to person, place, time, situation. Neuro: Denies headache. Cardiovascular: Denies chest pain, lightheadedness, shortness of breath, Capillary refill < 3 seconds is brisk in bilateral fingers. Respiratory: Airway is patent Respiratory effort is even, unlabored, Respiratory pattern is regular, symmetrical. GI: No signs and/or symptoms were reported involving the gastrointestinal system. : No signs and/or symptoms were reported regarding the genitourinary system. Derm: Skin is pink, warm \T\ dry. Musculoskeletal: Range of motion: intact in all extremities. Historical: - Allergies: 14:16 No Known Allergies; rb1 - PMHx: 14:16 Diabetes - NIDDM; neuropathy; rb1 - PSHx: 14:16 Cholecystectomy; Appendectomy; cervical; Knee surgery; right hand; rb1 - Immunization history:: Adult Immunizations up to date. - Social history:: Smoking status: Patient/guardian denies using. Screenin:16 Abuse screen: Denies threats or abuse. Nutritional screening: No deficits noted. rb1 Tuberculosis screening: No symptoms or risk factors identified. Fall Risk None identified. Assessment: 14:16 General: See triage assessment. rb1 15:16 Reassessment: Patient appears in no apparent distress at this time. No changes from rb1 previously documented assessment. 15:32 Reassessment: Pt. ambulated to the restroom without difficulty. rb1 16:30 Reassessment: Patient appears in no apparent distress at this time. Patient and/or rb1 family updated on plan of care and expected duration. Pain level reassessed. Patient is alert, oriented x 3, equal unlabored respirations, skin warm/dry/pink. Pt. tolerated PO challenge well. 17:14 Reassessment: Patient appears in no apparent distress at this time. No changes from rb1 previously documented assessment. Vital Signs: 14:16 BP 160 / 81; Pulse 65; Resp 15; Temp 98.6(TE); Pulse Ox 100% on R/A; Weight 77.11 kg rb1 (R); Height 5 ft. 8 in. (172.72 cm) (R); Pain 0/10; 15:16 BP 128 / 82; Pulse 74; Resp 17; Pulse Ox 100% on R/A; rb1 16:15 BP 153 / 83; Pulse 65; Resp 20; Pulse Ox 100% on R/A; rb1 17:15 BP 159 / 82; Pulse 70; Resp 17; Pulse Ox 98% on R/A; rb1 14:16 Body Mass Index 25.85 (77.11 kg, 172.72 cm) [facility] ED Course: 14:16 Arm band placed on right wrist. rb1 14:16 Patient has correct armband on for positive identification. Bed in low position. Call rb1 light in reach. Side rails up X 1. ekg monitor tech on. Pulse ox on. NIBP on. Warm blanket given. 14:27 Patient arrived in ED. iw 14:29 Jose Harry PA is PHCP. cp 14:29 Haresh Kovacs MD is Attending Physician. cp 14:31 Lynnette Marley, RN is Primary Nurse. rb1 14:39 Triage completed. rb1 15:00 EKG done, by blood bank technologist. reviewed by Jose MCELROY. at1 17:42 No provider procedures requiring assistance completed. Patient did not have IV access rb1 during this emergency room visit. Administered Medications: No medications were administered Outcome: 17:04 Discharge ordered by MD. cp 17:42 Patient left the ED. rb1 17:42 Discharged to home ambulatory. rb1 17:42 Condition: stable 17:42 Discharge instructions given to patient, Instructed on discharge instructions, follow up and referral plans. Demonstrated understanding of instructions, follow-up care, Prescriptions given X none Signatures: Samra Stone, RN RN iw Suly Veronica, business system consultant EKG Tat1 Jose Harry PA PA cp Barber, Rebecca, RN RN rb1 Corrections: (The following items were deleted from the chart) 17:46 16:30 Reassessment: Patient appears in no apparent distress at this time. Patient rb1 and/or family updated on plan of care and expected duration. Pain level reassessed. Patient is alert, oriented x 3, equal unlabored respirations, skin warm/dry/pink. rb1
--- NOTE | 2019-12-06 17:05 | EDPHYS ---
Physician Documentation [facility] Name: Collette Gomez Age: 69 yrs Sex: Female : 1950 Arrival Date: 12/06/2019 Time: 14:27 Bed 18 Private MD: ED Physician Haresh Kovacs HPI: 12/05 14:35 This 69 yrs old Female presents to ER via EMS with complaints of Low Blood cp Sugar. 14:35 The patient or guardian reports generalized weakness, hypoglycemia, that was cp potentially precipitated by no particular event. Onset: The symptoms/episode began/occurred today. Associated signs and symptoms: Pertinent negatives: vomiting, chest pain, abdominal pain. Current symptoms: In the emergency department the patient's symptoms have improved, mildly. Historical: - Allergies: 14:16 No Known Allergies; rb1 - PMHx: 14:16 Diabetes - NIDDM; neuropathy; rb1 - PSHx: 14:16 Cholecystectomy; Appendectomy; cervical; Knee surgery; right hand; rb1 - Immunization history:: Adult Immunizations up to date. - Social history:: Smoking status: Patient/guardian denies using. ROS: 14:45 Constitutional: Negative for body aches, chills, fever, poor PO intake. cp 14:45 Eyes: Negative for injury, pain, redness, and discharge. cp 14:45 ENT: Negative for drainage from ear(s), ear pain, sore throat, difficulty swallowing, difficulty handling secretions. 14:45 Cardiovascular: Negative for chest pain, edema, palpitations. 14:45 Respiratory: Negative for cough, shortness of breath, wheezing. 14:45 Abdomen/GI: Negative for abdominal pain, nausea, vomiting, and diarrhea. 14:45 Skin: Negative for rash. 14:45 Neuro: Positive for weakness, Negative for altered mental status, dizziness, headache, syncope. 14:45 All other systems are negative. Exam: 14:50 Constitutional: The patient appears in no acute distress, alert, awake, cp non-diaphoretic, non-toxic, well developed, well nourished. 14:50 Head/Face: Normocephalic, atraumatic. cp 14:50 Eyes: Periorbital structures: appear normal, Pupils: equal, round, and reactive to light and accomodation, Extraocular movements: intact throughout, Conjunctiva: normal, no exudate, no injection, Sclera: no appreciated abnormality, Lids and lashes: appear normal, bilaterally. 14:50 ENT: External ear(s): are unremarkable, Ear canal(s): are normal, clear, TM's: bulging, is not appreciated, bilaterally, dullness, bilaterally, erythema, is not appreciated, bilaterally, Nose: is normal, Mouth: is normal, Posterior pharynx: is normal, airway is patent, no erythema, no exudate. 14:50 Neck: ROM/movement: is normal, is supple, without pain, no range of motions limitations, no nuchal rigidity. 14:50 Chest/axilla: Inspection: normal, Palpation: is normal, no crepitus, no tenderness. 14:50 Cardiovascular: Rate: normal, Rhythm: regular, Edema: is not appreciated, JVD: is not appreciated. 14:50 Respiratory: the patient does not display signs of respiratory distress, Respirations: normal, no use of accessory muscles, labored breathing, is not present, Breath sounds: are clear throughout, no decreased breath sounds. 14:50 Abdomen/GI: Inspection: abdomen appears normal, Palpation: abdomen is soft and non-tender, in all quadrants. 14:50 Skin: no rash present. 14:50 Neuro: Orientation: to person, place \T\ time. Mentation: is normal, Cerebellar function: is grossly normal, Motor: moves all fours, strength is normal, Sensation: is normal. 15:05 ECG was reviewed by the Attending Physician. cp Vital Signs: 14:16 BP 160 / 81; Pulse 65; Resp 15; Temp 98.6(TE); Pulse Ox 100% on R/A; Weight 77.11 kg rb1 (R); Height 5 ft. 8 in. (172.72 cm) (R); Pain 0/10; 15:16 BP 128 / 82; Pulse 74; Resp 17; Pulse Ox 100% on R/A; rb1 16:15 BP 153 / 83; Pulse 65; Resp 20; Pulse Ox 100% on R/A; rb1 17:15 BP 159 / 82; Pulse 70; Resp 17; Pulse Ox 98% on R/A; rb1 14:16 Body Mass Index 25.85 (77.11 kg, 172.72 cm) rb1 MDM: 14:34 Patient medically screened. cp 15:00 Differential diagnosis: hyperglycemia, hypoglycemic episode, electrolyte abnormality, cp dehydration, cardiac arrythmia. 17:03 Data reviewed: vital signs, nurses notes, lab test result(s), EKG, and as a result, I cp will discharge patient. 17:03 Test interpretation: by ED physician or midlevel provider: ECG. Counseling: I had a cp detailed discussion with the patient and/or guardian regarding: the historical points, exam findings, and any diagnostic results supporting the discharge/admit diagnosis, lab results, radiology results, to return to the emergency department if symptoms worsen or persist or if there are any questions or concerns that arise at home. Response to treatment: the patient's symptoms have markedly improved after treatment, and as a result, I will discharge patient. 12/05 14:29 Order name: Basic Metabolic Panel; Complete Time: 15:47 cp 12/05 15:47 Interpretation: Normal except: CL 110; BUN 21; CRE 1.35; GFR 39. cp 12/05 14:29 Order name: CBC with Diff; Complete Time: 15:47 cp 12/05 15:47 Interpretation: Normal except: MCH 26.7. cp 12/05 14:29 Order name: LFT's; Complete Time: 15:47 cp 12/05 15:54 Interpretation: Normal except: GLOB 3.7; A/G 1.0. cp 12/05 14:29 Order name: Magnesium; Complete Time: 15:47 cp 12/05 14:29 Order name: NT PRO-BNP; Complete Time: 15:47 cp 12/05 15:47 Interpretation: Abnormal: NT PRO-BNP 496. cp 12/05 14:29 Order name: PT-INR; Complete Time: 15:47 cp 12/05 14:29 Order name: Troponin (emerg Dept Use Only); Complete Time: 15:47 cp 12/05 14:29 Order name: EKG; Complete Time: 14:30 cp 12/05 14:29 Order name: Cardiac monitoring; Complete Time: 14:49 cp 12/05 14:29 Order name: EKG - Nurse/Tech; Complete Time: 15:49 cp 12/05 14:29 Order name: IV Saline Lock; Complete Time: 15:48 cp 12/05 15:03 Order name: Glucose, Ancillary Testing; Complete Time: 15:47 EDMS 12/05 15:05 Order name: Urine Microscopic Only; Complete Time: 15:54 cp 12/05 15:48 Order name: Urine Dipstick--Ancillary (enter results); Complete Time: 15:54 eb 12/05 14:29 Order name: Labs collected and sent; Complete Time: 14:49 cp 12/05 14:29 Order name: O2 Per Protocol; Complete Time: 14:49 cp 12/05 14:29 Order name: O2 Sat Monitoring; Complete Time: 14:49 cp 12/05 15:05 Order name: Urine Dipstick-Ancillary (obtain specimen); Complete Time: 17:12 cp 12/05 15:54 Order name: PO challenge; Complete Time: 17:09 cp EC:05 Rate is 59 beats/min. Rhythm is regular. MD interval is normal. QRS interval is normal. cp QT interval is normal. Interpreted by me. Reviewed by me. Administered Medications: No medications were administered Disposition: 12/06 09:45 Co-signature as Attending Physician, Haresh Kovacs MD I agree with the assessment and kdr plan of care. Disposition: 12/06/19 17:04 Discharged to Home. Impression: Weakness. - Condition is Stable. - Discharge Instructions: Weakness, Blood Glucose Monitoring, Adult. - Medication Reconciliation Form, Thank You Letter, Antibiotic Education, Prescription Opioid Use form. - Follow up: Private Physician; When: 2 - 3 days; Reason: Recheck today's complaints. - Problem is new. - Symptoms have improved. Signatures: [facility] Haresh Kovacs MD MD [facility] Jose Harry PA PA Lynnette Marx RN RN rb1 Corrections: (The following items were deleted from the chart) 12/05 17:42 17:04 12/06/2019 17:04 Discharged to Home. Impression: Weakness. Condition is Stable. rb1 Forms are Medication Reconciliation Form, Thank You Letter, Antibiotic Education, Prescription Opioid Use. Follow up: Private Physician; When: 2 - 3 days; Reason: Recheck today's complaints. Problem is new. Symptoms have improved. cp 12/06 13:38 12/04 14:45 Constitutional: Negative for body aches, chills, fever, poor PO intake, cp cp 12/06 13:38 12/04 14:45 Eyes: Negative for injury, pain, redness, and discharge, cp cp
[2019-12-06 17:48] VITALS: O2SAT 100
[2019-12-06 17:49] VITALS: BP 153/83
--- NOTE | 2019-12-07 07:37 | EKG ---
Test Date: 2019-12-06 Test Time: 15:00:18 Tower Hand: JEREMY MEASUREMENT RESULTS: Intervals: Rate: 59 MA: 160 QRSD: 78 QT: 428 QTc: 423 [place]: P: 52 MA: 160 QRS: 37 T: 56 INTERPRETIVE STATEMENTS: Sinus bradycardia Otherwise normal ECG No previous ECG available for comparison Electronically Signed On 12-07-19 07:34:50 CDT by Yan Garduno
== END 2019-12-06 17:42 | disposition home or self-care (01) ==
LOC: ER 14:20
DX: R53.1 Weakness (principal); E11.40 Type 2 diabetes mellitus with diabetic neuropathy, unspecified
CPT/HCPCS: 36415; 80048; 80076; 81003; 81015; 82947; 83735; 83880; 84484; 85025; 85610; 93005; 99284